=== PATIENT | male | born 1990 | race Caucasian/White ===

== ENCOUNTER 2018-02-01 10:58 | Emergency (ER) | payer SELFPAY | END 2018-02-01 11:27 | disposition home or self-care (01) | LOC: BURERS 10:58 | DX: K04.7 Periapical abscess without sinus (principal); K02.9 Dental caries, unspecified; F41.9 Anxiety disorder, unspecified; F98.8 Other specified behavioral and emotional disorders with onset usually occurring in childhood and adolescence; F17.290 Nicotine dependence, other tobacco product, uncomplicated; Z79.899 Other long term (current) drug therapy | CPT/HCPCS: 99282 ==